=== PATIENT | male | born 1975 | race Caucasian/White ===

== ENCOUNTER 2023-07-17 11:00 | Emergency (ER) | payer OTHER ==
[~2023-07-17] VITALS: Ht 172.7 cm; Wt 85.7 kg
[2023-07-17 11:16] VITALS: BP 128/72; PULSE 113; RESP 21; TEMP 100.1; O2SAT 99
[2023-07-17] MEDS ORDERED: ONDA-188 SL (12:21)
[2023-07-17] MEDS ORDERED: IBUP-2213 PO (12:21)
[2023-07-17 12:31] VITALS: BP 122/70; PULSE 98; RESP 16; TEMP 99.3; O2SAT 99
[2023-07-17 12:34] LABS: FLU A ANTIGEN negative (NEGATIVE); FLU B ANTIGEN negative (NEGATIVE)
== END 2023-07-17 12:31 | disposition home or self-care (01) ==
LOC: MED 11:00
DX: B34.9 Viral infection, unspecified (principal); Z20.822 Contact with and (suspected) exposure to COVID-19; Z79.1 Long term (current) use of non-steroidal anti-inflammatories (NSAID); Z79.899 Other long term (current) drug therapy
CPT/HCPCS: 99283